=== PATIENT | female | born 1990 | race Caucasian/White ===

== ENCOUNTER → 2017-11-09 16:10 | Outpatient (CLI) | payer OTHER, SELFPAY ==
[2017-11-09 17:19] LABS: Color, Urine Yellow (Yellow); Glucose, Dipstick Normal (Normal); Ketone-Dipstick Negative (Negative); Leukocyte Esterase-Dipstick Negative /ul (Negative); Nitrite-Dipstick Negative (Negative); Occult Blood-Urine Negative /ul (Negative); Protein-Dipstick Negative (Negative); Urine Bilirubin Dipstick Negative (Negative); Urine Clarity Clear (Clear); Urine Urobilinogen Normal (Normal)
[2017-11-09 17:23] LABS: Absolute Neutrophil Count 5.5 X10^3/uL (2.0-7.7); Basophil# 0.01 X10^3/uL; Basophil% 0.1 % (0-1); Eosinophil# 0.09 X10^3/uL; Eosinophils% 1.1 % (0-5); Hematocrit 35.2 % (37-47); Hemoglobin 12.6 g/dl (12.0-15.0); Lymphocyte % 27.4 % (19-41); Mean Corp Hgb Conc 35.8 g/gl (32-36); Mean Corpuscular Hgb 30.2 pg (27.0-32.0); Mean Corpuscular Volume 84.4 fL (81-99); Mean Platelet Vol. 10.3 fl (6.2-12.0); Monocyte# 0.24 X10^3/uL; Neutrophil # 5.46 X10^3/uL (2.7-7.7); Neutrophil % 68.2 % (47-70); POSITIVE COUNT NO; POSITIVE DIFFERENTIAL NO; POSITIVE MORPHOLOGY NO; Platelet Count 265 K/mm3 (150-450); RBC Distribution Width CV 13.2 % (11.6-14.6); RBC Distribution Width SD 40.4 fl (35.1-43.9); Red Blood Count 4.17 M/mm3 (4.2-5.4)
[2017-11-09 17:41] LABS: Thyroid Stim Hormone (TSH) 0.92 uIU/mL (0.358-3.74)
[2017-11-09 18:22] LABS: HIV - WCH Non-Reactive (Nonreactive); Rubella IgG > 500.0 IU/mL
[2017-11-09 19:15] LABS: Chlamydia Trachomatis by PCR Negative (Negative); Neisserai gonorrhoeae by PCR Negative (Negative); Probe Check PASS; Sample Adequacy Control PASS; Specimen Processing Control PASS
[2017-11-11 03:58] LABS: Prenatal RPR NONREACTIVE (NONREACTIVE)
[2017-11-11 13:37] LABS: HEPATITIS B SURFACE AG Negative (Negative); Hep C Antibodies <0.1 s/co ratio (0.0-0.9)
[2017-11-16 08:22] LABS: HPV Reflexed? NOT INDICATED
== END ==
PROVIDERS: Visit Provider Obstetrics & Gynecology
DX: Z34.82 Encounter for supervision of other normal pregnancy, second trimester (principal); Z12.4 Encounter for screening for malignant neoplasm of cervix; Z11.3 Encounter for screening for infections with a predominantly sexual mode of transmission
CPT/HCPCS: 36415; 81002; 84443; 85025; 86703; 86762; 86803; 87340; 87491; 87591; 88175; G0145

== ENCOUNTER → 2018-02-16 14:11 | Outpatient (CLI) | payer OTHER, SELFPAY ==
[2018-02-16 16:15] LABS: Glucose Challenge Gest 1H 50g 96 mg/dL (70-140)
[2018-02-16 16:18] LABS: Hematocrit 32.8 % (37-47); Hemoglobin 11.3 g/dl (12.0-15.0); Mean Corp Hgb Conc 34.5 g/gl (32-36); Mean Corpuscular Volume 89.9 fL (81-99); Mean Platelet Vol. 10.2 fl (6.2-12.0); Platelet Count 241 K/mm3 (150-450); RBC Distribution Width CV 13.2 % (11.6-14.6); RBC Distribution Width SD 42.2 fl (35.1-43.9); Red Blood Count 3.65 M/mm3 (4.2-5.4); Scan Indicated on CBC? Y/N NO
--- OUTSIDE RECORDS SUMMARY | 2018-04-13 19:29 | XMS RPT_ITS ---
:1990 Author Organization OH[facility] Care Team Providers Name Role Phone Aaron Peters Attending Unavailable Aaron Peters Attending Unavailable PROBLEMS PROBLEMS DATE TYPE CONDITION / CODE ATTENDING STATUS SOURCE 11/09/2017 Unknown Z12.4 - Encounter Aaron Peters for screening for Community malignant neoplasm [facility] of cervix / Repository Z12.4(ICD-10) 11/09/2017 Unknown Z11.3 - Encounter Aaron Peters for screening for Community infections with a Hospital [facility] Repository sexual mode of transmission / Z11.3(ICD-10) 11/09/2017 Unknown Z34.82 - Encounter Aaron Peters for supervision of [facility] other normal Hospital , second Repository trimester / Z34.82(ICD-10) PROCEDURES PROCEDURES No Procedure Records FoundRESULTS RESULTS GLUCOSE CHALLENGE GEST Collected: 02/16/2018 Status: F Source: [place] 1H 50G 2:13 PM [facility] REPOSITORY TYPE CODE TESTS RESULT OUT OF RANGE REFERENCE UNITS LAB L501.0250 70-140 mg/dL Normal GLU GEST 96 50g 1H Performed By: #### L501.0250 #### [facility] [address] [place], [place], [id number] CBC-COMPLETE BLOOD CNT Collected: 02/16/2018 Status: F Source: [place] NO DIFF 2:13 PM [facility] REPOSITORY TYPE CODE TESTS RESULT OUT OF RANGE REFERENCE UNITS LAB L100.1000 4.4-11.0 K/mm3 Normal WBC 11.0 LAB L100.1200 4.2-5.4 M/mm3 Low RBC 3.65 LAB L100.1300 12.0-15.0 g/dl Low HGB 11.3 LAB L100.1400 37-47 % Low HCT 32.8 LAB L100.1500 81-99 fL Normal MCV 89.9 LAB L100.1600 27.0-32.0 pg Normal MCH 31.0 LAB L100.1700 32-36 g/gl Normal MCHC 34.5 LAB L100.1810 11.6-14.6 % Normal RDW CV 13.2 LAB L100.1820 35.1-43.9 fl Normal RDW SD 42.2 LAB L100.1900 150-450 K/mm3 Normal PLT 241 LAB L100.2000 6.2-12.0 fl Normal MPV 10.2 Performed By: #### L100.0500 #### [facility] [address] [place], [address] CBC W/DIFF, AUTOMATED Collected: 11/09/2017 Status: F Source: [place] 4:19 PM [facility] REPOSITORY TYPE CODE TESTS RESULT OUT OF RANGE REFERENCE UNITS LAB L100.1000 4.4-11.0 K/mm3 Normal WBC 8.0 LAB L100.1200 4.2-5.4 M/mm3 Low RBC 4.17 LAB L100.1300 12.0-15.0 g/dl Normal HGB 12.6 LAB L100.1400 37-47 % Low HCT 35.2 LAB L100.1500 81-99 fL Normal MCV 84.4 LAB L100.1600 27.0-32.0 pg Normal MCH 30.2 LAB L100.1700 32-36 g/gl Normal MCHC 35.8 LAB L100.1810 11.6-14.6 % Normal RDW CV 13.2 LAB L100.1820 35.1-43.9 fl Normal RDW SD 40.4 LAB L100.1900 150-450 K/mm3 Normal PLT 265 LAB L100.2000 6.2-12.0 fl Normal MPV 10.3 LAB L100.2100 47-70 % Normal NEUT% 68.2 LAB L100.2200 19-41 % Normal LY% 27.4 LAB L100.2300 0-10 % Normal MONO% 3.0 LAB L100.2400 0-5 % Normal EO% 1.1 LAB L100.2500 0-1 % Normal BASO% 0.1 LAB L100.2550 0.0-0.9 % Normal IM GRAN % 0.200 Result Comment: IG% - Immature Granulocytes (promyelocytes, myelocytes and metamyelocytes) > 1% indicates that a LEFT SHIFT is Present. LAB L100.2620 2.0-7.7 X10 3/uL Normal Absolute Neut 5.5 LAB L100.2720 0.83-4.51 X10 3/ul Normal Absolute Lymph 2.20 Performed By: #### L100.0100 #### [facility] [address] [place], [address] URINALYSIS, ROUTINE Collected: 11/09/2017 Status: F Source: [place] (DIPSTICK) 4:19 PM [facility] REPOSITORY Order Comment: How was Urine Obtained? Urine, Random TYPE CODE TESTS RESULT OUT OF RANGE REFERENCE UNITS LAB L400.3000 Yellow COLOR Normal Yellow LAB L400.3050 Clear Normal CLARITY Clear LAB L400.3200 Normal mg/dl Normal GLUCOSE, UR Normal LAB L400.3300 Negative mg/dL Normal BILIRUBIN URINE Negative LAB L400.3400 Negative mg/dl Normal KETONE UR Negative LAB L400.3465 1.002-1.030 Normal SP.GR. DIPSTX 1.020 LAB L400.3550 5.0 - 8.0 pH UR Normal 6.0 LAB L400.3600 Negative mg/dl PROT Normal DIPSTX Negative LAB L400.3700 Normal mg/dl Normal UROBILI Normal LAB L400.3750 Negative Normal NITRITE UR Negative LAB L400.3780 Negative /ul Normal OCCULT BLOOD-UR Negative LAB L400.3800 Negative /ul LEUK Normal ESTERASE Negative Performed By: #### L400.2010 #### [facility] [address] [facility] [place], [address] THYROID STIM HORMONE Collected: 11/09/2017 Status: F Source: [place] (TSH) 4:19 PM [facility] REPOSITORY TYPE CODE TESTS RESULT OUT OF RANGE REFERENCE UNITS LAB L501.9520 0.358-3.74 uIU/mL Normal TSH 0.92 Performed By: #### L501.9520 #### [facility] [address] [place], [address] RUBELLA IGG Collected: 11/09/2017 Status: F Source: [place] 4:19 PM [facility] REPOSITORY TYPE CODE TESTS RESULT OUT OF RANGE REFERENCE UNITS LAB L509.4000 IU/mL Normal Rubella IgG > 500.0 Result Comment: Antibody results Interpretation of Immune Status < 5 IU/ml Presumed Non-immune 5 - < 10 IU/ml Equivocal > or = 10 IU/ml Presumed Immune Performed By: #### L509.4000, L3890.6005 #### [facility] [address] [place], [place], [address] HIV - [facility] Collected: 11/09/2017 Status: F Source: [place] 4:19 PM [facility] REPOSITORY TYPE CODE TESTS RESULT OUT OF RANGE REFERENCE UNITS LAB L3890.6005 Nonreactive Normal HIV - [facility] Non-Reactive Performed By: #### L509.4000, L3890.6005 #### [facility] [place], [address] T AND S-NO Collected: 11/09/2017 Status: F Source: [place] CHARGE W/PNP 4:19 PM [facility] REPOSITORY Order Comment: Reason for Type AND Screen/Red Cells: Surgery? N TYPE CODE TESTS RESULT OUT OF RANGE REFERENCE UNITS LAB B10.0800 A Normal BLOOD POSITIVE TYPE GEL LAB B100.4050 Normal Ab SCREEN NEGATIVE GEL Performed By: #### B100.7550 #### [facility] [place], [address] RPR Collected: 11/09/2017 Status: F Source: [place] 4:19 PM [facility] REPOSITORY TYPE CODE TESTS RESULT OUT OF REFERENCE UNITS RANGE LAB L700.5100 NONREACTIVE Normal RPR NONREACTIVE Performed By: #### L700.5100 #### [facility] [address] [place], [address] HEPATITIS B SURFACE Collected: 11/09/2017 Status: F Source: [place] AG 4:19 PM [facility] REPOSITORY TYPE CODE TESTS RESULT OUT OF RANGE REFERENCE UNITS LAB L3100.0400 Negative Normal HB Negative SURF AG Result Comment: Performed at: [address] [id number] Travel Specialist: Alexis Pinzon PhD, Phone: [phone] Performed By: #### L3100.0390, L3100.0625 #### [facility] (refer to report for specific site) refer to report for address and phone number HEPATITIS C ANTIBODIES Collected: 11/09/2017 Status: F Source: [place] 4:19 PM [facility] REPOSITORY TYPE CODE TESTS RESULT OUT OF RANGE REFERENCE UNITS LAB L3100.0650 0.0-0.9 s/co ratio Normal HEP C AB <0.1 Result Comment: Negative: < 0.8 Indeterminate: 0.8 - 0.9 Positive: > 0.9 The CDC recommends that a positive HCV antibody result be followed up with a HCV Nucleic Acid Amplification test ([id number]). Performed By: #### L3100.0390, L3100.0625 #### [facility] (refer to report for specific site) refer to report for address and phone number CT/NG [facility] BY PCR Collected: 11/09/2017 Status: F Source: [place] 3:00 PM [facility] REPOSITORY TYPE CODE TESTS RESULT OUT OF RANGE REFERENCE UNITS LAB L8200.2100 Negative Normal Chlam Negative Trac PCR LAB L8200.2200 Negative Normal NG by Negative PCR Performed By: #### L8200.2000 #### [facility] [place], [address] PAP IG W/REFLEX HR Collected: 11/09/2017 Status: F Source: [place] HPV APTIMA 3:00 PM [facility] REPOSITORY Order Comment: CYTOLOGY INFORMATION: - CLINICAL INFORMATION: - DATE LMP/MENOPAUSE: 07/31/17 LMP - COLLECTION VIAL: Thin Prep Vial - OUTBOUND SALES PROFESSIONAL SOURCE: CERVICAL/ENDOCERVICAL - COLLECTION TECHNIQUE: BRUSH/SPATULA Specimen Comment: [id number] Specimen Comment: No. of containers..01 ThinPrep Vial TYPE CODE TESTS RESULT OUT OF RANGE REFERENCE UNITS LAB L7400.0800 . Normal DIAGN Comment Result Comment: NEGATIVE FOR INTRAEPITHELIAL LESION AND MALIGNANCY. LAB L7400.0900 . Normal ADEQ Comment Result Comment: Satisfactory for evaluation. Endocervical and/or squamous metaplastic cells (endocervical component) are present. LAB L7400.1400 . Normal PERFORM Comment Result Comment: Lila Kelley, Play Therapist (ASCP) LAB L7400.2575 . Normal TEST METHOD Comment Result Comment: This liquid based ThinPrep(R) pap test was screened with the use of an image guided system. LAB L7400.2600 . Normal . COMM LAB L7400.2700 . Normal PAPSMR Comment Result Comment: The Pap smear is a screening test designed to aid in the detection of premalignant and malignant conditions of the uterine cervix. It is not a diagnostic procedure and should not be used as the sole means of detecting cervical cancer. Both false-positive and false-negative reports do occur. LAB L7400.2800 . Normal HPV RFLX Comment Result Comment: The HPV DNA reflex criteria were not met with this specimen result therefore, no HPV testing was performed. Performed at: [facility] [employer] [id number] Travel Specialist: Agata Sepulveda MD, Phone: [phone] Performed By: #### L7400.0357 #### [facility] (refer to report for specific site) refer to report for address and phone number ALLERGIES ALLERGIES No Allergies Records FoundENCOUNTERS ENCOUNTERS ADMIT/DISCHARGE ACCOUNT ADMITTING ENCOUNTER LOCATION SOURCE NUMBER CLASS 02/16/2018 [id number] [facility] ing:WOBLAB Repository 11/09/2017 [id number] [facility] ing:WOBLAB Repository PAYERS PAYERS ENCOUNTER GUARANTOR PAYER SUBSCRIBER SOURCE 02/16/2018 [address]LAY [id number] CLAY MASTDOB: [place] Insurance:[employer] [id number] [address]Cbg: GROUPPolicy Number: Repository [id number] (HP) Date: [address] [address]YU: 02/16/2018 Secondary NOT GIVENUNK [place] Insurance:SELF PAY [facility]: Effective Repository Date:2018-02-16 11/09/2017 [id number] CLAY NEW: [place] [employer] Insurance:[employer] [id number], [place] [address]Lzz: GROUPPolicy Number: Repository [id number] () Date: [address] [address]BW: 11/09/2017 Secondary NOT GIVENUNK [place] Insurance:SELF PAY [facility] Number: Effective Repository Date:2017-11-09
== END ==
PROVIDERS: Visit Provider Obstetrics & Gynecology
DX: Z34.83 Encounter for supervision of other normal pregnancy, third trimester (principal)
CPT/HCPCS: 36415; 82950; 85027

== ENCOUNTER → 2020-08-29 13:22 | Outpatient (CLI) | payer OTHER, SELFPAY ==
[2020-09-04 13:03] LABS: HPV Reflexed? NOT INDICATED
== END ==
PROVIDERS: Visit Provider Obstetrics & Gynecology
DX: Z12.4 Encounter for screening for malignant neoplasm of cervix (principal)
CPT/HCPCS: 88175; G0145

== ENCOUNTER → 2020-09-29 14:14 | Outpatient (CLI) | payer OTHER, SELFPAY ==
[2020-09-29 17:01] LABS: Absolute Lymphocyte Count 2.06 X10^3/uL (0.83-4.51); Absolute Neutrophil Count 4.5 X10^3/uL (2.0-7.7); Basophil# 0.01 X10^3/uL; Basophil% 0.1 % (0-1); Eosinophil# 0.12 X10^3/uL; Eosinophils% 1.7 % (0-5); Hematocrit 35.1 % (37-47); Hemoglobin 12.1 g/dL (12.0-15.0); Lymphocyte # 2.06 X10^3/ul (0.83-4.51); Lymphocyte % 29.5 % (19-41); Mean Corp Hgb Conc 34.5 g/dL (32-36); Mean Corpuscular Hgb 29.6 pg (27.0-32.0); Mean Corpuscular Volume 85.8 fL (81-99); Mean Platelet Vol. 10.5 fl (6.2-12.0); Monocyte# 0.24 X10^3/uL; Monocyte% 3.4 % (0-10); NRBC Flagged by Analyzer 0 % (0-5); Neutrophil # 4.52 X10^3/uL (2.7-7.7); Neutrophil % 64.9 % (47-70); Platelet Count 262 K/mm3 (150-450); RBC Distribution Width CV 13.4 % (11.6-14.6); RBC Distribution Width SD 42.1 fl (35.1-43.9); Red Blood Count 4.09 M/mm3 (4.2-5.4)
[2020-09-29 17:59] LABS: HIV - WCH Non-Reactive (Nonreactive); Hepatitis B Surface Antigen Non-Reactive (Nonreactive); Hepatitis C Antibody Non-Reactive (Nonreactive); Rubella IgG Reactive (Nonreactive); Syphilis Antibodies Non-reactive
== END ==
PROVIDERS: Visit Provider Obstetrics & Gynecology
DX: Z34.82 Encounter for supervision of other normal pregnancy, second trimester (principal); Z82.3 Family history of stroke
CPT/HCPCS: 36415; 81241; 85025; 86703; 86762; 86780; 86803; 87086; 87340

== ENCOUNTER → 2020-12-24 13:46 | Outpatient (CLI) | payer OTHER, SELFPAY ==
[2020-12-24 15:00] LABS: Hemoglobin 11.4 g/dL (12.0-15.0); Mean Corp Hgb Conc 34.5 g/dL (32-36); Mean Corpuscular Hgb 29.2 pg (27.0-32.0); Mean Corpuscular Volume 84.6 fL (81-99); Mean Platelet Vol. 10.1 fl (6.2-12.0); Platelet Count 227 K/mm3 (150-450); RBC Distribution Width CV 12.5 % (11.6-14.6); White Blood Count 7.6 K/mm3 (4.4-11.0)
[2020-12-24 15:04] LABS: Glucose Challenge Gest 1H 50g 115 mg/dL (70-140)
== END ==
PROVIDERS: Visit Provider Obstetrics & Gynecology
DX: Z34.83 Encounter for supervision of other normal pregnancy, third trimester (principal)
CPT/HCPCS: 36415; 82950; 85027

== ENCOUNTER → 2021-02-18 14:42 | Outpatient (CLI) | payer OTHER, SELFPAY | PROVIDERS: Visit Provider Obstetrics & Gynecology | DX: Z03.818 Encounter for observation for suspected exposure to other biological agents ruled out (principal) | CPT/HCPCS: 87635; U0005; U0003 ==

== ENCOUNTER 2021-02-25 05:10 | Inpatient (IN) | payer SELFPAY, OTHER ==
[2021-02-25] VITALS (25 sets, daily range): BP systolic 100–131; BP diastolic 50–84; PULSE 66–110; RESP 16; TEMP 36.1–37; O2SAT 97–100; BMI 27.6
[2021-02-25] MEDS: Lactated Ringers 1,000 ML 999 ML IV (06:05)
[2021-02-25] MEDS: Acetaminophen 500 MG Tablet 1000 MG PO ×3 (06:20→18:25)
[2021-02-25 06:53] LABS: Absolute Neutrophil Count 4.3 X10^3/uL (2.0-7.7); Basophil# 0.02 X10^3/uL; Basophil% 0.3 % (0-1); Eosinophil# 0.13 X10^3/uL; Eosinophils% 1.8 % (0-5); Hematocrit 36.2 % (37-47); Hemoglobin 12.2 g/dL (12.0-15.0); Lymphocyte % 34.1 % (19-41); Mean Corp Hgb Conc 33.7 g/dL (32-36); Mean Corpuscular Hgb 28.1 pg (27.0-32.0); Mean Corpuscular Volume 83.4 fL (81-99); Mean Platelet Vol. 10.1 fl (6.2-12.0); Monocyte# 0.36 X10^3/uL; Monocyte% 4.9 % (0-10); NRBC Flagged by Analyzer 0 % (0-5); Neutrophil # 4.28 X10^3/uL (2.7-7.7); Neutrophil % 58.4 % (47-70); Platelet Count 224 K/mm3 (150-450); RBC Distribution Width CV 13.2 % (11.6-14.6); RBC Distribution Width SD 40.3 fl (35.1-43.9); Red Blood Count 4.34 M/mm3 (4.2-5.4); White Blood Count 7.3 K/mm3 (4.4-11.0)
[2021-02-25] MEDS: Sodium Citrate/Citric Acid 30 ML UDC PO (07:12)
[2021-02-25] MEDS: Lactated Ringers 1,000 ML 150 ML IV (07:12)
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
[2021-02-25] MEDS: Cefazolin 2 GM in 0.9% Normal Saline 100 ML IV (07:21)
--- NOTE | 2021-02-25 07:21 | EX.PCM.OBRPT ---
Maternal Data Information Final RUBEN: 02/27/21 Final RUBEN Source: US <20 weeks Gestational age: 39w5d Details Operative Information Date of Procedure: 02/25/21 Pre-Operative Diagnosis: Prior Section, Anencephalic Baby Post-Operative Diagnosis: Prior Section, Anencephalic Baby Classification: Scheduled Procedure Type: low transverse vice president risk management #1: Eugenio Warner Type of Anesthesia: Spinal Anesthesiologist: Francisco Sherman Antibiotic Given: Ancef 2 grams IV x1 Drain: Dodson to straight drain Estimated Blood Loss: 500 cc Fluids Replaced: Crystalloid Findings Description of Procedure: Surgeon: Aaron Peters MD, FACOG Indication: This is a 30-year-old who presents for her second at 39+ weeks gestation. care has otherwise been uneventful except that the baby is in cephalic. Patient has refused termination. The patient has been counseled regarding the risk and indications of this procedure including the possibility of bleeding infection and injury to surrounding structures such as bowel bladder. All questions were answered. Procedure: Patient was taken to the operating room where after spinal anesthesia was placed, the patient was prepped and draped in usual sterile fashion and a Dodson catheter was placed. The abdomen was entered through the patient's prior Pfannenstiel incision and peritoneum was entered bluntly. After developing a bladder flap on the lower uterine segment a low transverse incision was made on the uterus and head was easily delivered onto the operative field the mouth was bulb suctioned. Subsequently a male infant was born with Apgars of 5/7. The infant was noted to cry move all extremities on the operative field. The umbilical cord was doubly clamped and ligated and infant handed to the nursery personnel who were present for the delivery. Placenta was delivered and noted to be 3 vessels and normal. Uterus was exteriorized and remaining placental tissue was removed. The uterus was then closed in 2 layers first with running locked 0 Vicryl suture followed by a second imbricating layer with 0 Vicryl suture. 0 Vicryl suture was then used in a horizontal mattress interrupted fashion to affect final hemostasis of the uterine incision line. Normal fallopian tubes and ovaries were visualized and the uterus was returned to the pelvis. Hemostasis was noted and rectus abdominis muscles were reapproximated in the midline with interrupted Number 0 Vicryl suture in a horizontal mattress fashion. Fascia was closed with running Number 1 PDS Strata fix suture. Subcutaneous tissue was irrigated with copious amounts of saline solution and then closed with running 3-0 Vicryl suture. Skin was closed with 4-0 monocryl suture in a running subcuticular fashion. Steri strips and a Mepilex dressing were placed across the incision. The patient tolerated the procedure well and was taken to the recovery room in satisfactory condition. Sponge, needle, and instrument counts were all reportedly correct. EBL was less than 500 cc. Ancef 2 gms IV was given prior to the procedure. Spicemen to Pathology: None Complications: None Presentation: Positive for Vertex Amniotic Fluid Description: Clear Placental Delivery Description: Spontaneous Placenta Disposition: [facility] Cord Vessel Description: 3 Vessels Cord Entanglement: None A Gender: Male (1 minute): 5 (5 minute): 7 Complications Risks of Surgery Discussed w/Patient: Bleeding, Infection and Injury to surrounding structure(s) including bowel and bladder Complications: None
--- NOTE | 2021-02-25 07:28 | PCM.DC ---
Discharge Instructions Diet Discharge Diet: No restrictions Activity May resume sexual activity in: 4-6 weeks Lifting Restrictions: 20 pounds Dressing / Incision Call your doctor if your incision/area has: Continuous Slow Oozing, Sudden Increased Bleeding, Increased Pain/ Swelling, Increased Redness and Foul Smelling Discharge Call your doctor if you observe: Fever of 101 or Higher, Inability to urinate, Inability to have a bowel movement and Using more than 1 pad per hour Follow Up Care Please Follow Up With: Aaron Peters MD When: Call [phone] for appointment to be seen in 2 weeks. Test Results: Test results from this visit will be discussed in further detail at your follow-up appointment, if applicable. Discharge Plan Admission Admit Date/Time: 02/25/21 05:10 Primary Reason for Your Visit: Repeat Attending Provider: Aaron Peters Discharge Orders/Prescriptions Prescriptions: New oxycodone 5 mg capsule 5 mg PO Q6H PRN (Reason: pain) 7 Days Qty: 10 RF: 0 docusate sodium 100 mg tablet 100 mg PO BID PRN (Reason: constipation) Qty: 60 RF: 1 Continued [id number] 1 mg Tablet PO RF: 0 omega-3 fatty acids Capsule PO RF: 0 Disposition Disposition (needs filled in before D/C Order can be placed): Home, Self Care
[2021-02-25] MEDS: Oxytocin 30 units/NS 500 ml 30 UNITS/500 ML IV.SOLN 167 UNITS IV (09:32)
[2021-02-25] MEDS: Ketorolac 30 MG/ML Syringe IV ×3 (09:44→21:12)
--- NOTE | 2021-02-25 11:59 | CHAPLAIN ---
Type of Pastoral Visit ___ Initial Visit ___ Follow-up Visit ___ On-call Visit ___ General Patient Visit ___ Spiritual Assessment ___ Family Conference ___ Bereavement ___ Rapid Response ___ Code Blue ___ Other (describe below) Pastoral Care Referral From ___ Patient ___ Family ___ Nurse ___ Physician ___ Event Specialist ___ Grain Picker ___ Other (describe below) Sacrament/Intervention ___ Active listening ___ Anointing ___ Restorationism ___ Bereavement ___ Communion ___ Shante exploration ___ ___ Life review ___ Prayer ___ Reconciliation ___ Sacrament of Sick ___ Supportive presence ___ Wedding ___ Other (describe below) Pastoral Comments hospital staff consulted with patient and family on desire for spiritual care support as is not expected to live; family has good support and declined hospital dental hygienist mobile coordinator at this time
[2021-02-25] MEDS: Lactated Ringers 1,000 ML 100 ML IV (12:32)
--- NOTE | 2021-02-25 14:24 | CASEMGMT ---
Social Work Labor and Delivery Unit Reason for consult: support, grief issues. Referral source: notification by nursing staff Summary: Received notice of this family prior to delivery, as parents were aware of infant with known anencephaly, and had been working with WP staff member for birthing and plans. Met with mother of baby (MOB) Nae [place], father of baby (FOB) Ck [place], along with 3 year old son Dominic and MOB's 2 sisters in room. Introduced to self and role. MOB reports found out at 13 weeks of issues with baby's development. MOB reports it was helpful to be able to prepare for baby's , but also reports the time went so fast with the . This is MOB's second , no history of loss. MOB reports to have a good support system from family and friends. Reports a sister has a history of 6 month stillbirth and there are 6 miscarriages between JEVON's 2 sisters. MOB denies any history of depression, anxiety, or depression for herself. Reports has some natural supplements to help stave off depression and anxiety, and plans to take said supplements in the timeframe. Assessment: Touched on depression, , and grief. Also touched on that both mom and dads can be affected, but may also deal with things differently. Emotional support offered, allowed time for reflection. MOB expressed being grateful for the time that has been given with the , who is named [place]. MOB with good eye contact, appropriate affect to content. FOB smiled at appropriate times, but affect constricted and appearing teary eyed. Parents express thanks for support being given by staff. Let MOB know that this ad copy writer can provide some written material on signs/symptoms to look for regarding depression/grief. MOB accepting of this ad copy writer bringing information back, just to have in case needed in the future. At time of social work visit, baby being held by MOB's sister and then by the FOB. Family gentle and attentive to baby. Observed baby to have some cries and intermittent audible breathing. Plan: Social work remains available for support as needed. Will stop by again to provide some resources for home going. -ESTHELA Hogan, PRIMER WATERPROOFING MACHINE OPERATOR
[2021-02-25] MEDS: Cefazolin 1 GM/50 ML BAG IV ×2 (14:31→21:22)
--- NOTE | 2021-02-25 17:00 | CASEMGMT ---
Social Work Labor and Delivery Checked in on patient/mother of baby (MOB) and father of baby (FOB) again this afternoon. Also present in the room was FOB's mother who was holding the baby. MOB reports to be doing okay. Reports has been able to get up and move around a couple of times today and this was helpful. 5 year old went home with family for the evening. Provided parents with information on depression, parents and grief, grief at the holidays. Left counseling options as well. Left this telegraphic typewriter operator's card in case MOB has questions later on. MOB expressed thanks. Let MOB know that can check in on family again tomorrow, and MOB reported that would be okay with this. Plan: MOB and baby continue hospital stay. -ESTHELA Hogan, SHIELD CLEANER
[2021-02-25] MEDS: 0.9% Saline Lock 10 ML Syringe IV (21:12)
[2021-02-26] VITALS (7 sets, daily range): BP systolic 101–122; BP diastolic 56–85; PULSE 66–77; RESP 14–16; TEMP 36.6–36.8; O2SAT 100
[2021-02-26] MEDS: Acetaminophen 500 MG Tablet 1000 MG PO ×3 (00:06→13:13)
[2021-02-26] MEDS: Ketorolac 30 MG/ML Syringe IV (03:14)
[2021-02-26] MEDS: 0.9% Saline Lock 10 ML Syringe IV (03:14)
[2021-02-26 06:12] LABS: Hematocrit 29.9 % (37-47); Hemoglobin 10.1 g/dL (12.0-15.0); Mean Corp Hgb Conc 33.8 g/dL (32-36); Mean Corpuscular Hgb 28.7 pg (27.0-32.0); Mean Corpuscular Volume 84.9 fL (81-99); Mean Platelet Vol. 9.4 fl (6.2-12.0); Platelet Count 181 K/mm3 (150-450); RBC Distribution Width CV 13.7 % (11.6-14.6); Red Blood Count 3.52 M/mm3 (4.2-5.4); White Blood Count 7.8 K/mm3 (4.4-11.0)
--- NOTE | 2021-02-26 07:04 | PN.OBGYN_ITS ---
Subjective Subjective No overnight complaints. Pain well controlled. Objective Data Objective Data Vital Signs: Vital Signs Temp Pulse Resp BP Pulse Ox 97.9 F 72 16 101/56 L 98 02/26/21 03:17 02/26/21 03:16 02/26/21 03:16 02/26/21 03:16 02/25/21 19:00 Oxygen Delivery Method Room Air Weight: 166 lb Body Mass Index (BMI) 27.6 Intake & Output: Intake and Output for Last 24 Hours 02/24/21 02/25/21 02/26/21 23:59 23:59 23:59 Intake Total 4818.33 / 4818.33 Output Total 3650 / 3650 Balance 1168.33 / 1168.33 Lab / Micro Data Result Diagrams: 02/26/21 06:05 Labs: Laboratory Results - last 24 hr 02/25/21 06:05: Blood Type A POSITIVE, Antibody Screen NEGATIVE 02/26/21 06:05: WBC 7.8, RBC 3.52 L, Hgb 10.1 L, Hct 29.9 L, MCV 84.9, MCH 28.7, MCHC 33.8, RDW Std Deviation 42.0, RDW Coeff of Arianne 13.7, Plt Count 181, MPV 9.4 Physical Exam Const alert, oriented x3, no apparent distress, average body habitus, healthy appearing and well nourished HEENT normocephalic and moist oral mucous membranes Head and Scalp: atraumatic Face and Sinus: normal facial exam Eyes PERRL Neck full ROM Resp normal respiratory effort, no retractions and no use of accessory muscles GI normal to inspection, nondistended, normoactive bowel sounds GI Narrative: Bandage clean dry and intact Psych mental status grossly normal, affect normal, speech normal and activity/motor be havior normal Assessment & Plan (1) Acute post-operative pain: PLAN: Postoperative day 1 status post repeat section. Baby with anencephaly, discussed palliative care treatment with director of strategic sourcing. For now for expectant management and comfort care.
[2021-02-26] MEDS: Ibuprofen 600 MG Tablet PO ×2 (09:05→15:04)
--- NOTE | 2021-02-26 09:07 | NURSING ---
Patient declines Senekot. She takes a natural stool softener at home. She prefers to use that and has brought it with her. Encouraged the use of a stool softener daily.
--- NOTE | 2021-02-26 14:23 | CASEMGMT ---
Social Work Labor and Delivery Met with patient/mother of baby (MOB), father of baby (FOB) and FOB's mother in room. Baby [place] nestled in blankets, laying in bed beside the MOB. Parents reports to be doing okay a this time and express gratitude for being able to have time with the baby. Parents reports comfortable with plan to go home with hospice/palliative care services for baby, which has been initiated by nursing and manager book to [facility]. MOB reports will have plenty of support from family who can come to the home and help with the baby as needed. Supportive listening and reflection offered. MOB smiling at appropriate times in conversation, engaged in conversation, and pleasant. Parents expressed thanks for the care provided during this stay. Plan: MOB to home and planning on taking baby home with hospice and palliative care services. -ESTHELA Hogan, JAVA DEVELOPER ARCHITECT
== END 2021-02-26 16:55 | disposition home or self-care (01) | DRG 787 ==
PROVIDERS: Admitting Provider Obstetrics & Gynecology; Visit Provider Obstetrics & Gynecology
PROC: 10D00Z1 Extraction of Products of Conception, Low, Open Approach (ICD-10-PCS; CPT 59514; principal; 2021-02-25 07:15)
DX: O34.211 Maternal care for low transverse scar from previous cesarean delivery (principal); O99.12 Other diseases of the blood and blood-forming organs and certain disorders involving the immune mechanism complicating childbirth; D68.51 Activated protein C resistance; O35.0XX0 Maternal care for (suspected) central nervous system malformation in fetus, not applicable or unspecified; Z3A.39 39 weeks gestation of pregnancy; Z37.0 Single live birth
CPT/HCPCS: 85025; 85027; 86850; 86900; 86901; 99218; J7120; A4216; G0378; J2405

== ENCOUNTER → 2021-08-05 | Outpatient (CLI) | payer OTHER, SELFPAY ==
[2021-08-06 07:08] LABS: Chlamydia By Nucleic Acid AMP Negative (Negative)
[2021-08-06 16:36] LABS: Gonococcus By Nucleic Acid AMP Negative (Negative)
== END | disposition home or self-care (01) ==
LOC: LABSPEC 10:47
PROVIDERS: Visit Provider Obstetrics & Gynecology
DX: O09.90 Supervision of high risk pregnancy, unspecified, unspecified trimester (principal)
CPT/HCPCS: 87086; 87491; 87591

== ENCOUNTER → 2021-09-29 | Outpatient (CLI) | payer SELFPAY, OTHER ==
--- NOTE | 2021-09-29 14:28 | US_ITS ---
STUDY: SECOND AND THIRD TRIMESTER OBSTETRICAL ULTRASOUND REASON FOR EXAM: Female, 31 years old anatomy LMP: 05/10/2021 TECHNIQUE: Transabdominal and Transvaginal TECHNICAL QUALITY: Adequate. PRIOR ULTRASOUND: None. FINDINGS: There is a single intrauterine fetus. The fetus is in a cephalic presentation. There is demonstrated cardiac activity with a heart rate of 155 bpm. There is a normal amniotic fluid volume. The largest amniotic fluid pocket measures 4.3 cm. The placenta is posterior in location and is not low lying. There are Grade 0 placental changes. The cervix measures 3.9 cm in length. The bilateral adnexal regions are normal. BIOMETRY: BPD: 4.0 cm: 18 weeks, 1 days HC: 15.39 cm: 18 weeks, 2 days AC: 13.16 cm: 18 weeks, 4 days FL: 2.74 cm: 18 weeks, 2 days CI: 73% FL/BPD: 69% FL/AC: 21% HC/AC: 1.17 age by current US: 18 weeks, 3 days. RUBEN by current US: 02/27/2022. Estimated weight: 243 grams, +/- 36 grams, 15 %. Age by LMP: 19 weeks, 1 days. RUBEN by LMP: 02/22/2022. ANATOMY: Gender: Male Cranium: Normal lateral ventricles. Normal choroid plexus measures 0.6 cm. Normal cerebellum measures 1.88 cm. Normal cisterna magna measures 4.6 mm. Normal face, nose and lips. Chest: Normal 4-chamber heart. Abdomen/Pelvis: Normal diaphragm. Normal stomach. Normal abdominal wall. Normal cord insertion. Normal 3 vessel cord. Bilateral renal dilation to 4 mm. Normal bladder. Spine: Normal cervical spine. Normal thoracic spine. Normal lumbar spine. Normal sacrum. Extremities: Normal bilateral upper extremities. Normal bilateral lower extremities. US/OB Anatomy Scan IMPRESSION: Mild bilateral renal collecting system enlargement. Otherwise normal appearance of 18 weeks and 3 day single intrauterine . Electronically Signed: Christopher Davis MD at 1:06 EDT ,
== END | disposition home or self-care (01) ==
LOC: US 13:30
PROVIDERS: PCP Nurse Practitioner Family; Visit Provider Obstetrics & Gynecology
DX: O09.92 Supervision of high risk pregnancy, unspecified, second trimester (principal); Z3A.18 18 weeks gestation of pregnancy
CPT/HCPCS: 76805; 76817

== ENCOUNTER → 2021-11-30 | Outpatient (CLI) | payer OTHER, SELFPAY ==
[2021-11-30 10:49] LABS: Absolute Lymphocyte Count 1.99 X10^3/uL (0.83-4.51); Absolute Neutrophil Count 6.2 X10^3/uL (2.0-7.7); Basophil# 0.02 X10^3/uL; Basophil% 0.2 % (0-1); Eosinophil# 0.09 X10^3/uL; Hemoglobin 11.7 g/dL (12.0-15.0); Lymphocyte # 1.99 X10^3/ul (0.83-4.51); Lymphocyte % 22.7 % (19-41); Mean Corp Hgb Conc 34.4 g/dL (32-36); Mean Corpuscular Hgb 31.1 pg (27.0-32.0); Mean Corpuscular Volume 90.4 fL (81-99); Mean Platelet Vol. 9.8 fl (6.2-12.0); Monocyte# 0.34 X10^3/uL; Monocyte% 3.9 % (0-10); NRBC Flagged by Analyzer 0 % (0-5); Neutrophil # 6.22 X10^3/uL (2.7-7.7); Neutrophil % 70.9 % (47-70); Platelet Count 201 K/mm3 (150-450); RBC Distribution Width CV 13.3 % (11.6-14.6); RBC Distribution Width SD 43.6 fl (35.1-43.9); Red Blood Count 3.76 M/mm3 (4.2-5.4); White Blood Count 8.8 K/mm3 (4.4-11.0)
[2021-11-30 11:06] LABS: Glucose Challenge Gest 1H 50g 96 mg/dL (70-140)
[2021-11-30 11:20] LABS: Rubella IgG Reactive (Nonreactive)
== END | disposition home or self-care (01) ==
LOC: PAVLAB 09:50
PROVIDERS: Obstetrics & Gynecology; PCP Nurse Practitioner Family; Referring Provider Nurse Practitioner Women's Health; Visit Provider Nurse Practitioner Women's Health
DX: Z34.90 Encounter for supervision of normal pregnancy, unspecified, unspecified trimester (principal)
CPT/HCPCS: 36415; 82950; 85025; 86762; 86850; 86900; 86901

== ENCOUNTER → 2021-12-31 | Outpatient (CLI) | payer SELFPAY, OTHER ==
--- NOTE | 2021-12-31 09:34 | US_ITS ---
STUDY: SECOND AND THIRD TRIMESTER OBSTETRICAL ULTRASOUND REASON FOR EXAM: Female, 31 years old growth LMP: 05/10/2021. TECHNIQUE: Transabdominal TECHNICAL QUALITY: Adequate. PRIOR ULTRASOUND: Comparison is made with prior examination dated 09/29/2021. FINDINGS: There is a single intrauterine fetus. The fetus is in a cephalic presentation. There is demonstrated cardiac activity with a heart rate of 157 bpm. There is a normal amniotic fluid volume. The largest amniotic fluid pocket measures 3.4 cm. The amniotic fluid index (ALEXEY) is 11.3 cm. The placenta is posterior in location and is not low lying. There are Grade 0 placental changes. The cervix measures 3.3 cm in length. The bilateral adnexal regions are normal. BIOMETRY: BPD: 8.05 cm: 32 weeks, 2 days HC: 30.0 cm: 33 weeks, 2 days AC: 27.6 cm: 31 weeks, 4 days FL: 5.9 cm: 31 weeks, 0 days CI: 79% FL/BPD: 74% FL/HC: FL/AC: 22% HC/AC: 1.09 age by current US: 32 weeks, 0 days. RUBEN by current US: 02/25/2022. Estimated weight: 1804 grams, +/- 271 grams, 19 %. age by prior US: 31 weeks, 5 days. RUBEN by prior US: 02/27/2022. Age by LMP: 32 weeks, 3 days. RUBEN by LMP: 02/22/2022. ANATOMY: Persistent mild degree of renal pelvic fullness of the fetus. US/OB Limited With Biometrics IMPRESSION: Single live uterine gestation with mean gestational age of 32 weeks. The measurements obtained today fall within the normal expected range. Electronically Signed: Germain Zapien MD at 10:30 EDT ,
== END | disposition home or self-care (01) ==
LOC: US 09:32
PROVIDERS: PCP Nurse Practitioner Family; Referring Provider Obstetrics & Gynecology; Visit Provider Obstetrics & Gynecology
DX: O35.8XX0 Maternal care for other (suspected) fetal abnormality and damage, not applicable or unspecified (principal); Z3A.32 32 weeks gestation of pregnancy
CPT/HCPCS: 76816

== ENCOUNTER 2022-02-08 11:56 | Outpatient (CLI) | payer OTHER, SELFPAY | END 2022-02-08 23:59 | disposition home or self-care (01) | LOC: LABSPEC 11:58 | PROVIDERS: PCP Nurse Practitioner Family; Visit Provider Obstetrics & Gynecology | DX: O09.90 Supervision of high risk pregnancy, unspecified, unspecified trimester (principal); Z3A.00 Weeks of gestation of pregnancy not specified | CPT/HCPCS: 87081 ==

== ENCOUNTER 2022-02-15 05:00 | Inpatient (IN) | payer SELFPAY, OTHER ==
[2022-02-15] VITALS (19 sets, daily range): BP systolic 99–134; BP diastolic 61–90; PULSE 60–98; RESP 12–19; TEMP 36.1–36.6; O2SAT 94–98; BMI 30.7
[2022-02-15] MEDS: Lactated Ringers 1,000 ML 999 ML IV (05:33)
[2022-02-15] MEDS: Acetaminophen 500 MG Tablet 1000 MG PO ×4 (05:43→23:28)
[2022-02-15 06:19] LABS: Absolute Lymphocyte Count 2.42 X10^3/uL (0.83-4.51); Absolute Neutrophil Count 6.2 X10^3/uL (2.0-7.7); Basophil# 0.03 X10^3/uL; Basophil% 0.3 % (0-1); Eosinophil# 0.07 X10^3/uL; Eosinophils% 0.8 % (0-5); Hematocrit 35.5 % (37-47); Hemoglobin 12.5 g/dL (12.0-15.0); Lymphocyte # 2.42 X10^3/ul (0.83-4.51); Lymphocyte % 26.1 % (19-41); Mean Corp Hgb Conc 35.2 g/dL (32-36); Mean Corpuscular Hgb 31.1 pg (27.0-32.0); Mean Corpuscular Volume 88.3 fL (81-99); Mean Platelet Vol. 10.5 fl (6.2-12.0); Monocyte# 0.42 X10^3/uL; Monocyte% 4.5 % (0-10); NRBC Flagged by Analyzer 0 % (0-5); Neutrophil # 6.24 X10^3/uL (2.7-7.7); Neutrophil % 67.3 % (47-70); Platelet Count 205 K/mm3 (150-450); RBC Distribution Width CV 13.2 % (11.6-14.6); RBC Distribution Width SD 42.4 fl (35.1-43.9); Red Blood Count 4.02 M/mm3 (4.2-5.4); White Blood Count 9.3 K/mm3 (4.4-11.0)
[2022-02-15] MEDS: Lactated Ringers 1,000 ML 150 ML IV (06:39)
[2022-02-15] MEDS: Sodium Citrate/Citric Acid 30 ML UDC PO (07:14)
[2022-02-15] MEDS: Cefazolin 2 GM in 0.9% Normal Saline 100 ML IV (07:16)
--- NOTE | 2022-02-15 07:17 | HP.PCM_ITS ---
History and Physical [facility] [address] [place] [address] OFFICE VISIT Intake Vital Signs ? 02/08/2210:19 02/08/2210:29 Height 5 ft 4 in 5 ft 4 in Weight: ? 180 lb BMI ? 30.9 BP ? 119/85 H Intake Visit Reasons:?38wk ob 02/15 Music Director Required: No Is patient in pain?: No Allergies adhesive Allergy (Verified 02/08/22 10:18) Rash Medications omega-3 fatty acids PO pregnacy 02/25/21 [History Confirmed 02/08/22] [id number] 1 mg tablet tab PO 02/25/21 [History Confirmed 02/08/22] ascorbate calcium (vitamin C) 500 mg tablet 500 mg PO DAILY 09/29/21 [History Confirmed 02/08/22] aspirin 81 mg tablet,delayed release (Adult Aspirin Regimen) 81 mg PO DAILY 09/29/21 [History Confirmed 02/08/22] nattasne PO 09/29/21 [History Confirmed 02/08/22] Last Menstrual Period: 05/18/21 Zika: Zika virus screening: Negative : No PFSH PFSH Medical History? Blood clotting disorder Encounter for follow-up ultrasound of anatomy History of blood transfusion Surgical History? History of surgery Previous section Family History? Father CAD (coronary artery disease) Myocardial infarction Social History? adopted:? No household members:? spouse and children number of children:? 1 current occupational status:? unemployed current occupation:? [employer] pets and animals:? No Smoking Status:? Never smoker alcohol intake:? never substance use type:? does not use do you feel safe at home:? Yes additional social history:? Gem History ? ? ? 3 ? Elective abortions ? Hx Para ? ? ? 2 ? Spontaneous abortions ? Hx # Term Pregnancies ? Ectopic pregnancies ? Hx # Pregnancies ? Multiple births ? # of living children ? ? ? 1 Past Pregnancies Del. Date Name GA/Weeks Outcome Route Bth Weight Infant Gen Labor Lgth Anesthesia Del Locatn Provider FOB 04/18/18 Dominic ? live - full term 7# 1 oz Male ? epidural Candelaria Stover 02/25/21 [place] ? live - full term C-sectio n 6# 8 Male ? epidural [facility] Fran Stover Delivery Date: 04/18/18? Last Updated by: Mary Tan WINDOWS SUPPORT ENGINEER, WINDOWS SUPPORT ENGINEER-C ? ? ? Elective c section due to hx of pelvic fracture Delivery Date: 02/25/21? Last Updated by: Mary Tan WINDOWS SUPPORT ENGINEER, WINDOWS SUPPORT ENGINEER-C ? ? ? Dx at 13 wk with anachephalic. lived 2 days HPI 38wk ob 02/15 Details: CLAY LOPEZ is a 31 year old who presents for routine OB visit. OB Visit RUBEN Calculator ? Estimated Delivery Date Method Current WG Current Estimate 02/22/22 Ultrasound #1 38w 0d Other Estimates 03/03/22 LMP (Certain) 36w 5d Expected Delivery Route/Plan Labor Preferences- CB/BF classes: [] labor support person: [] labor intervention preferences: repeat c/s pain management options preferred: [] cut cord/dad catch: [] : yes PP control planned: [] discussed possible routes of delivery and associated risks: [] special requests: [] Specific Issue/Plans Covid status: [] Flu vaccine: [] Tdap vaccine: [] Rhogam: [] LARC form signed: [] Problem list reviewed and updated with the most current plan of care details and appropriate orders placed.? Relevant counseling for the gestational age provided. Continue routine care and follow up unless otherwise noted in visit notes/problem list details Initial Weight:?Not Recorded Date -?-?-?-?-?-?-?-?-?-?-?-?- EGA Weight BP Urine Prot -?-?-?-?-?-?-?-?-?-?-?-?- Glucose FHR FuHt Pres Dilation -?-?-?-?-?-?-?-?-?-?-?-?- Effaced St Visit Note 08/04/21-?-?-?-?-?-?-?-?-?-?-?-?- 11w 1d 159 lb 116/78 -?-?-?-?-?-?-?-?-?-?-?-?- ? 150 ? ? -?-?-?-?-?-?-?-?-?-?-?-?- ? ? JV- new RUBEN determined by CRL. A 08/26/21-?-?-?-?-?-?-?-?-?-?-?-?- 14w 2d 161 lb 4 oz 114/76 Negative -?-?-?-?-?-?-?-?-?-?-?-?- Negative 157 ? ? -?-?-?-?-?-?-?-?-?-?-?-?- ? ? JV- no complaints, on lovenox. anatomy ultrasound ordered with the hospital. 09/29/21-?-?-?-?-?-?-?-?-?-?-?-?- 19w 1d 165 lb 122/70 Negative -?-?-?-?-?-?-?-?-?-?-?-?- Negative 161 ? ? -?-?-?-?-?-?-?-?-?-?-?-?- ? ? MH-No VB, LOF. Feeling flutters. Stopped lovenox.? Saw naturopathic pr ovider, taking ASA, Vit C and another supplement for DVT prevention.? Discussed with SM and patient choice. Reviewed will enc to use lovenox 6wk pp.? 10/28/21-?-?-?-?-?-?-?-?-?-?-?-?- 23w 2d 167 lb 6 oz 110/68 Negative -?-?-?-?-?-?-?-?-?-?-?-?- Negative 154 ? ? -?-?-?-?-?-?-?-?-?-?-?-?- ? ? MH-No VB, LOF. Good FM.? No using lovenox. Declines repeat US of kidneys.? Has not done PN labs and will do with 28 wk labs next visit. 11/30/21-?-?-?-?-?-?-?-?-?-?-?-?- 28w 0d 173 lb 8 oz 111/74 Negative -?-?-?-?-?-?-?-?-?-?-?-?- Negative 140 28 ? -?-?-?-?-?-?-?-?-?-?-?-?- ? ? SM- no vb lof good fm n oregular ctx.? scheudle cs. 12/31/21-?-?-?-?-?-?-?-?-?-?-?-?- 32w 3d 175 lb 116/82 Negative -?-?-?-?-?-?-?-?-?-?-?-?- Negative 140 32 ? -?-?-?-?-?-?-?-?--?-?-?-?- ? ? SM- no vb lof good fm no regular ctx 01/20/22-?-?-?-?-?-?-?-?-?-?-?-?- 35w 2d 177 lb 4 oz 120/76 Negative -?-?-?-?-?-?-?-?-?-?-?-?- Negative 135 35 ? -?-?-?-?-?-?-?-?-?-?-?-?- ? ? LC-no vb,lof, ctx. good fm. no concerns. 02/04/22-?-?-?-?-?-?-?-?-?-?-?-?- 37w 3d 179 lb 109/72 -?-?-?-?-?-?-?-?-?-?-?-?- ? 140 37 ? -?-?-?-?-?-?-?-?-?-?-?-?- ? ? lc- good fm, no ctx,lof,vb. labor precautions provided. has rpt c/s scheduled for 02/1502/08/22-?-?-?-?-?-?-?-?-?-?-?-?- 38w 0d 180 lb 119/85 Negative -?-?-?-?-?-?-?-?-?-?-?-?- Negative 140 37 Cephalic 0-?-?-?-?-?-?-?-?-?- ?-?-?- ? ? SM- no vb lof good fm no regular ctx preop instructions vreviewed ACOG First Trimester First Trimester: Desire for , Alcohol, Tobacco Cessation, Illicit/Recreational Drug/Substance Use, Intimate Partner Violence, Barriers to care, Unstable Housing, Communication Barriers, Environmental/Work Hazards, Anticipated Course of Care, Toxoplasmosis Precations, Use of Any medications, Sexual activity, Exercise, Dental Care, Sauna/Hot tub use, Seat Belt use, Childbirth classes/Hospital facilities, , Travel, Indications for Ultrasound and Screening for Aneuploidy Second Trimester Second Trimester: Signs and Symptoms of Labor, Selecting a care provider, Reproductive Life Planning & Contreception, Care Planning, Tobacco Cessation, Depression/Anxiety and Intimate Partner Violence Third Trimester Third Trimester: Pain Management Plans, Labor support person(s), Immediate Larc, Movement Monitoring and Feeding Yes ; Discussed Trial of Labor after Counseling and Discussed Circumcision preference Diagnostics Diagnostics Diagnostics: ?? ? Blood Type A POSITIVE ?? ? Antibody Screen NEGATIVE ?? ? Glucose 1 Hr 50 gm 96 mg/dL (70-140) ?? ? Rubella IgG Antibody Reactive? (Nonreactive) ?? ? Hgb 11.7 g/dL (12.0-15.0)? L ?? ? Hct 34.0 % (37-47)? L ?? ? Chlamydia DNA (JEZ) Negative? (Negative) ?? ? N.gonorrhoeae DNA (JEZ) Negative? (Negative) Details: HIV: Urine Culture: Sequential Screen: NIPT Screen: ROS Const Reports system reviewed and no additional complaints, except as documented Card Reports system reviewed and no additional complaints, except as documented Resp Reports system reviewed and no additional complaints, except as documented GI Reports system reviewed and no additional complaints, except as documented and Reports nausea Reports system reviewed and no additional complaints, except as documented Musc Reports system reviewed and no additional complaints, except as documented Exam Const General: cooperative, healthy appearing, comfortable and anxious [facility] Head: normal to inspection Nose: external nose normal Face and sinus: normal facial exam Neck Neck: normal visual inspection, full ROM and no lymphadenopathy Thyroid: thyroid normal Chest Chest palpation & inspection: normal inspection of the chest Resp Effort & Inspection: normal respiratory effort GI Inspection: normal to inspection Palpation: soft and other (gravid uterus) Other: vertex and appropriate size for gestational age Other: Cervical Exam: Extrem General: pedal edema Results POC Urinalysis 2 Dip? (Clinic) Office Urine Glucose Negative ? ? Last Edit by Sally Nieto on 02/08/22 10:29 Office Urine Protein Negative ? ? Last Edit by Sally Nieto on 02/08/22 10:29 Coding Level of Care Code OB Routine Diagnoses Refuses tetanus, diphtheria, and acellular pertussis (Tdap) vaccination? Z28.21 Encounter for follow-up ultrasound of anatomy? Z36.2 History of pelvic fracture? Z87.81 H/O neural tube defect in infant in prior , currently ? O09.299 Supervision of high risk , antepartum? O09.90 ? Z3A.38 ? ? ? Weeks of gestation: 38 weeks Previous section? Z98.891 History of blood transfusion? Z92.89 Blood clotting disorder? D68.9 Assessment and Plan Assessment and Plan (1) Refuses tetanus, diphtheria, and acellular pertussis (Tdap) vaccination: ?Status:?Acute (2) Encounter for follow-up ultrasound of anatomy: ?Status:?Acute ?Comment: repeat US at 32 weeks. slightly enlarged kidneys, FU US in 6-8 wks, if no change send MFM consult.? Pt does not want NIPT Patient initially declined repeat US of kidneys- now open to fu scan later. (3) History of pelvic fracture: ?Status:?Acute ?Comment: Multiple fractures w pelvis, jaw, elbow ribs.? Reconstruction of pelvis with plate. 2009 (4) H/O neural tube defect in infant in prior , currently : ?Status:?Acute ?Comment: Son [place] with anencephaly, lived 2 days. Dx at 13 wk on US. Delivered at 39 wk, c section Fran (5) Supervision of high risk , antepartum: ?Status:?Acute ?Comment: PRR (SP) RUBEN:03/03/22. PC:[place](03/10 dec anacephalic.) Sp:Ck (6) : ?Status:?Acute ?Qualifiers: ?Weeks of gestation:?38 weeks? Qualified Code(s):?Z3A.38 - 38 weeks gestation of ?Comment: Declines genetic, carrier and AFP screen. reviewed anatomy US, nl growth. (7) Previous section: ?Status:?Acute ?Comment: X 2; wants repeat CS. RLTCS scheduled for 02/15 @ 7:30 with SM (8) History of blood transfusion: ?Status:?Acute ?Comment: october 2009 (9) Blood clotting disorder: ?Status:?Acute ?Comment: factor v leidin for patient and several of family. ?mom, sister, brother with clots. sister lost a 20 weeker and had 6 miscarriages recommend lovenox. rx sent. pt reluctant. did not take last 2 pregnancies. Stopped lovenox. Taking ASA, Vit C and herbal supplement-will call with ingredients. Herbal supplement is Natto a soybean like food that contain Vit K. planning on taking them UPDATE- I have seen the patient and performed any clinically relevant updates to the history and physical exam. Elyssa Donohue MD
--- NOTE | 2022-02-15 07:18 | OP.PCM_ITS ---
Assessment & Plan (1) Blood clotting disorder: COMMENT: factor v leidin for patient and several of family. mom, sister, brother with clots. sister lost a 20 weeker and had 6 miscarriages recommend lovenox. rx sent. pt reluctant. did not take last 2 pregnancies. Stopped lovenox. Taking ASA, Vit C and herbal supplement-will call with brandyn torres. Herbal supplement is Natto a soybean like food that contain Vit K. planning on taking them encouraged 6 weeks (2) History of blood transfusion: COMMENT: october 2009 (3) Previous section: COMMENT: X 2; wants repeat CS. RLTCS scheduled for 02/15 @ 7:30 with (4) Encounter for follow-up ultrasound of anatomy: COMMENT: repeat US at 32 weeks. slightly enlarged kidneys, FU US in 6-8 wks, if no change send MFM consult. Pt does not want NIPT Patient initially declined repeat US of kidneys- now open to fu scan later. (5) Refuses tetanus, diphtheria, and acellular pertussis (Tdap) vaccination: (6) History of pelvic fracture: COMMENT: Multiple fractures w pelvis, jaw, elbow ribs. Reconstruction of pelvis with plate. 2009 (7) H/O neural tube defect in in prior , currently : COMMENT: Son [place] with anencephaly, lived 2 days. Dx at 13 wk on US. Delivered at 39 wk, c section Fran (8) Supervision of high risk , antepartum: COMMENT: PRR (SP) RUBEN:03/03/22. PC:[place](03/10 dec anacephalic.) Sp:Ck (9) : QUALIFIERS: Weeks of gestation: 38 weeks Qualified Code(s): Z3A.38 - 38 weeks gestation of COMMENT: Declines genetic, carrier and AFP screen. reviewed anatomy US, nl growth. (10) delivery delivered: COMMENT: RLTCS 39 Maternal Data Information RUBEN Calculator Estimated Delivery Date Method Current WG Current Estimate 02/22/22 Ultrasound #1 39w 0d Other Estimates 03/03/22 LMP (Certain) 37w 5d Final RUBEN Source: LMP Details Operative Information Date of Procedure: 02/15/22 Pre-Operative Diagnosis: Previous Post-Operative Diagnosis: same Indications for : Repeat Elective Classification: Scheduled poultry pinner #1: Rosita Hughes Type of Anesthesia: Spinal Special Medications: none Antibiotic Given: Ancef 2 grams IV x1 Drain: Dodson to straight drain Estimated Blood Loss: 500 Fluids Replaced: crystalloid Findings Description of Procedure: Spinal anesthesia was placed without difficulty. Dodson catheter was placed. The patient was placed in the dorsal supine position with leftward tilt. Patient was prepped and draped in the normal sterile fashion. Pfannenstiel skin incision was made with the scalpel and carried through to the underlying layer of fascia with the scalpel. Fascia was nicked in the midline and the incision extended laterally. The rectus bellies were dissected off superiorly and inferiorly with out complication both sharply and bluntly. The peritoneum was entered digitally. The incision was stretched and a low transverse uterine incision was made with the scalpel. The infant's head was delivered atraumatically followed by the anterior and posterior shoulders without complication the rest of the infant delivered. The cord was clamped and cut and the was handed off to awaiting nurse. The placenta was delivered spontaneously immediately following and was noted to be intact and have a three- vessel cord. The uterus was exteriorized cleared of all clots and debris, and the incision was closed in a double layer closure using #1 Monocryl. The ovaries and fallopian tubes were noted to be within normal limits. The uterus was returned to the maternal abdomen and gutters were cleared of all clots and debris. The peritoneum was closed with 3-0 Monocryl in a running fashion. Gloves were changed prior to fascial closure. Fascia was closed with 0 PDS in a running fashion. Subcutaneous tissue was copiously irrigated and the skin was closed with 3-0 Monocryl in a subcuticular fashion. Mepilex dressing was applied without complication. Patient was taken to recovery in stable condition. It was discussed with the patient that based on the clinical information obtained during this encounter, combined with her history, at this time I would recommend cesareans for future deliveries if further pregnancies are desired. Amniotic Membrane Rupture Type: Artificial Amniotic Fluid Description: Clear Placenta Disposition: [facility] Cord Vessel Description: 3 Vessels Cord Entanglement: None A Gender: Male Delayed Cord Clamping: Yes Complications Risks of Surgery Discussed w/Patient: Bleeding, Infection, Need for Future C- Sections and Injury to surrounding structure(s) including bowel and bladder Vaginal Delivery Complication Complications: None Admit VTE Documentation VTE Present on Admission: No VTE Mechan Device Prophylaxis: SCD's Procedures Urinary/Genital [id number]: [id number] Delivery [facility]
--- NOTE | 2022-02-15 07:22 | PCM.DC ---
Discharge Instructions Diet Discharge Diet: No restrictions Activity Discharge Activity: Return to Normal Activity, May Drive (when pain free and off narcotic pain meds), May Shower and May Take a Tub Bath (in 4 weeks) May resume sexual activity in: 6 weeks Weight Bearing Status: Full weight bearing Lifting Restrictions: under 30 lbs for 6 weeks Dressing / Incision Call your doctor if your incision/area has: Continuous Slow Oozing, Sudden Increased Bleeding, Increased Pain/ Swelling, Increased Redness, Foul Smelling Discharge and - Call your doctor if you observe: Fever of 101 or Higher, Using more than 1 pad per hour, Shortness of breath, Chest pain and Uncontrolled pain Suture Line Care: Avoid Pulling/Pushing and Avoid Pinching/Bending Change Dressing in: 1 week (leave open to air after removed) Remove Dressing in: 1 week (if present) Cleanse incision/area with: Soap & Water and Keep Dressing Clean & Dry Follow Up Care Please Follow Up With: Elyssa Donohue MD When: Call to make an appointment with your doctor for a postop visit in 2 and 6 weeks. Test Results: Test results from this visit will be discussed in further detail at your follow-up appointment, if applicable. Discharge Plan Admission Admit Date/Time: 02/15/22 05:00 Attending Provider: Elyssa Donohue Primary Care Provider: Feliciano Wright NP Discharge Orders/Prescriptions Prescriptions: New oxycodone-acetaminophen [Percocet] 5-325 mg tablet 1 tab PO Q6H PRN (Reason: pain) 7 Days Qty: 20 0RF naproxen [naproxen] 500 mg tablet 500 mg PO BID PRN PRN (Reason: Pain) Qty: 30 1RF Continued aspirin [Adult Aspirin Regimen] 81 mg tablet,delayed release (DR/EC) 81 mg PO DAILY ascorbate calcium (vitamin C) 500 mg tablet 500 mg PO DAILY nattasne 1 tab PO DAILY [id number] 1 mg Tablet 1 tab PO DAILY omega-3 fatty acids Capsule 1 cap PO BID Referrals / Follow Up: Feliciano Wright NP, HOME THEATRE TECHNICIAN-[facility] [Primary Care Provider] - Disposition Disposition (needs filled in before D/C Order can be placed): Home, Self Care
[2022-02-15 07:43] LABS: Syphilis Antibodies Non-reactive
[2022-02-15 08:05] LABS: HIV - WCH Non-Reactive (Nonreactive); Hepatitis B Surface Antigen Non-Reactive (Nonreactive); Hepatitis C Antibody Non-Reactive (Nonreactive)
[2022-02-15] MEDS: Oxytocin 15 Units/NS 250ml 15 UNITS/250 ML IV.SOLN 83 UNITS IV (08:54)
[2022-02-15] MEDS: Ketorolac 30 MG/ML Syringe IV ×3 (09:12→20:27)
[2022-02-15] MEDS: Lactated Ringers 1,000 ML 100 ML IV (11:43)
[2022-02-15] MEDS: 0.9% Saline Lock 10 ML Syringe IV ×3 (14:10→20:27)
--- NOTE | 2022-02-15 16:06 | NURSING ---
Report given to Lilibeth Cortés RN who will assume care of the patient at this time.
[2022-02-15] MEDS: Enoxaparin 40 MG/0.4 ML Syringe SC (20:27)
[2022-02-16] MEDS: Ketorolac 30 MG/ML Syringe IV (03:55)
[2022-02-16] MEDS: 0.9% Saline Lock 10 ML Syringe IV (03:56)
[2022-02-16 04:10] VITALS: BP 107/71; PULSE 68; RESP 15; TEMP 36.3; O2SAT 98
[2022-02-16 04:56] LABS: Hematocrit 32.5 % (37-47); Hemoglobin 11.4 g/dL (12.0-15.0); Mean Corp Hgb Conc 35.1 g/dL (32-36); Mean Corpuscular Hgb 31.6 pg (27.0-32.0); Mean Platelet Vol. 10.2 fl (6.2-12.0); Platelet Count 164 K/mm3 (150-450); RBC Distribution Width CV 13.3 % (11.6-14.6); RBC Distribution Width SD 43.7 fl (35.1-43.9); Red Blood Count 3.61 M/mm3 (4.2-5.4); White Blood Count 8.3 K/mm3 (4.4-11.0)
[2022-02-16] MEDS: Acetaminophen 500 MG Tablet 1000 MG PO (07:27)
--- NOTE | 2022-02-16 07:55 | PCM.PN.OB ---
Subjective Subjective Patient doing well without complaints. Tolerating PO. Ambulating and voiding without difficulty. Feeding well. Denies chest pain, shortness of breath, calf pain/swelling, fevers, chills, lightheadedness. Objective Data Objective Data Vital Signs: Vital Signs Temp Pulse Resp BP Pulse Ox O2 Del Method 97.4 F L 68 15 107/71 98 Room Air 02/16/22 04:10 02/16/22 04:10 02/16/22 04:10 02/16/22 04:10 02/16/22 04:10 02/16/22 04:10 Oxygen Delivery Method Room Air Weight: 178 lb 12.8 oz Body Mass Index (BMI) 30.7 Intake & Output: Intake and Output for Last 24 Hours 02/14/22 02/15/22 02/16/22 23:59 23:59 23:59 Intake Total 1659.61 / 1659.61 Output Total 3850 / 3850 Balance -2190.39 / -2190.39 Lab / Micro Data Result Diagrams: 02/16/22 04:45 Labs: Laboratory Results - last 24 hr 02/15/22 05:33: Hep Bs Antigen Non-Reactive, Hepatitis C Antibody Non-Reactive, HIV 1&2 Antibody Non-Reactive 02/16/22 04:45: WBC 8.3, RBC 3.61 L, Hgb 11.4 L, Hct 32.5 L, MCV 90.0, MCH 31.6, MCHC 35.1, RDW Std Deviation 43.7, RDW Coeff of Arianne 13.3, Plt Count 164, MPV 10.2 Physical Exam Const alert and oriented x3 HEENT normocephalic Eyes PERRL Neck full ROM Resp normal respiratory effort GI soft to palpation GI Narrative: FF below U. 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 mom, sister, brother with clots. sister lost a 20 weeker and had 6 miscarriages recommend lovenox. rx sent. pt reluctant. did not take last 2 pregnancies. Stopped lovenox. Taking ASA, Vit C and herbal supplement-will call with ingredients. Herbal supplement is Natto a soybean like food that contain Vit K. planning on taking them encouraged 6 weeks PLAN: Plan s/p LTCS PPD # 1 1. routine post care 2. breast feeding- support given 3. rh positive 4. rubella immune 5. home today
[2022-02-16 08:45] VITALS: BP 103/67; PULSE 78; RESP 16; TEMP 36.4; O2SAT 98
[2022-02-16] MEDS: Enoxaparin 40 MG/0.4 ML Syringe SC (09:40)
[2022-02-16] MEDS: Naproxen 500 MG Tablet PO (09:40)
[2022-02-16 12:56] VITALS: BP 114/76; PULSE 85; RESP 18; TEMP 36.3; O2SAT 97
== END 2022-02-16 13:10 | disposition home or self-care (01) | DRG 787 ==
PROVIDERS: Admitting Provider Obstetrics & Gynecology; PCP Nurse Practitioner Family; Visit Provider Obstetrics & Gynecology
PROC: 10D00Z1 Extraction of Products of Conception, Low, Open Approach (ICD-10-PCS; CPT 59514; principal; 2022-02-15 06:55)
DX: O34.219 Maternal care for unspecified type scar from previous cesarean delivery (principal); D68.51 Activated protein C resistance; O99.12 Other diseases of the blood and blood-forming organs and certain disorders involving the immune mechanism complicating childbirth; Z37.0 Single live birth; Z3A.39 39 weeks gestation of pregnancy; Z87.81 Personal history of (healed) traumatic fracture; Z28.21 Immunization not carried out because of patient refusal
CPT/HCPCS: 59025; 85025; 85027; 86703; 86780; 86803; 86850; 86900; 86901; 87340; 99218; 99251; J7120; A4216; G0378; G0463; J2405